=== PATIENT | female | born 1965 | race Two or more races ===

== ENCOUNTER → 2024-01-22 | Day surgery (SDC) | payer MEDICAID ==
[~2024-01-22] VITALS: Ht 162.6 cm; Wt 115.7 kg
[~2024-01-22] MED LIST: AML5T PO; ATOR10TA PO; BENA20TA PO; DexAMETHasone SOD PHOS 10MG/1ML VIAL INJ ONE; ESTR1TAB5 PO; HYDROmorphone HCL 2 MG/ML VL/or syr IV PRN; MEPERIDINE HCL (50 MG/ML) 1 ML VIAL ONE; MIDAZOLAM HCL 2MG/2ML 2ml VIAL (1mg/ml) IV PRN; MIDAZOLAM HCL 2MG/2ML 2ml VIAL (1mg/ml) ONE; MORPHINE SULFATE 4 MG/ML SYR/VIAL IV PRN; ONDANSETRON HCL 4 MG/2 ML VIAL IV ONE; PANT40TA2 PO; PROPOFOL 10 MG/ML 20 ML IV ONE; SERT25TA84 PO; ePHEDrine SULFATE 50 MG/ML AMP IV PRN; fentaNYL CITRATE 100 MCG/2 ML VL ONE
--- NOTE | 2024-01-22 11:54 | DVHHP2 ---
GI H&P Pre-Op Assessment Date: 01/22/24 Chief complaint: colon cancer surveillance HPI: per clinic note Past medical history: per clinic note Past surgical history: per clinic note Family history: per clinic note Physical exam: General: NAD, AAOX3 HEENT: PERRL, no scleral icterus, normal hearing, gums without lesions or bleeding, oropharynx clear without erythema or exudate. Neck: Supple without enlargement of the thyroid, or lymphadenopathy. Chest: Normal size and shape, no tenderness, lung bae clear to auscultation and percussion, nonlabored breathing. Heart: RRR, no murmur Abdomen: non-distended, no tenderness to palpation, +BS, no hepatosplenomegaly Extremities: no edema Neurological: CN II-XII intact, sensation intact in all extremities, 5+ strength in all extremities Skin: No rashes, No jaundice Assessment: - colon cancer surveillance Plan: - Colonoscopy - Risks (bleeding, infection, perforation, reaction to sedation medications and cardiopulmonary arrest) and benefit of the procedure were explained to patient. Patient agrees to undergo the procedure. MARY MASSEY MD Jan 22, 2024 11:54
--- NOTE | 2024-01-22 12:49 | DVHOP2 ---
Operative Report DATE OF OPERATION: 01/22/24 PROCEDURE: Colonoscopy. PREOPERATIVE INDICATION: The patient is a 58 -year-old female with history of colon cancer undergoing colonoscopy for colon cancer surveillance. POSTOPERATIVE DIAGNOSES: 1. Anastomosis at 20 cm from anal verge. It was normal-appearing. Biopsies were obtained. 2. Internal hemorrhoids PROCEDURE PERFORMED BY: Abe Beverly M.D. SCOPE: Olympus videocolonoscope. ASA CLASS: 3 PREOPERATIVE MEDICATIONS: MAC with Dr Levy PROCEDURE IN DETAIL: After obtaining an informed consent, the patient was placed on left lateral decubitus position. She was then sedated with the above medications. A rectal examination was performed that was normal. The colono scope was then passed through the anus into the rectosigmoid and through the descending, transverse, and ascending colon up to the cecum with visualization of the appendiceal orifice, base of the cecum and the ileocecal valve. No mass or polyp was observed. There was a normal appearing anastomosis in the sigmoid colon at 20 cm from the anal verge. Multiple biopsies were obtained from the anastomosis to check for dysplasia. There were internal hemorrhoids. The colonoscope was then withdrawn. The patient tolerated the procedure well without difficulty. WITHDRAWAL TIME: 8 minutes QUALITY OF THE PREP: Rock Bowel Prep score: 6 COMPLICATIONS : None SPECIMENS: Biopsy from the sigmoid anastomosis DISPOSITION: D/C to home PLAN: 1. Repeat colonoscopy base on biopsy result ABE BEVERLY MD Jan 22, 2024 12:49
--- NOTE | 2024-01-22 12:49 | DVHDS2 ---
Physician Discharge Progress N Final Diagnosis: Sigmoid anastomosis that was normal in appearance., internal hemorrhoids Operations or Procedures: Operations or Procedures Colonoscopy with biopsy Condition on Discharge: Good Disposition: Home Discharge Instructions: Diet: Regular Activity: No Restrictions, As Tolerated Medications: Resume with previous home medications Follow Up Care: Discharge Statement: "Patient was advised to return to the ER or call 911 if any headaches, dizziness, shortness of breath, chest pain, abdominal pain, bleeding, fevers, or worsening of medical condition. Patient was counseled about treatment plan, medications, possible side effects, patientverbalized understanding. All questions were answered to the best of my ability. This discharge took greater then 30 minutes in planning, reviewing documentation, counseling the patient, and discussing with other team members." MARY MASSEY MD Jan 22, 2024 12:49
[2024-01-22 12:55] VITALS: PULSE 57; RESP 15; TEMP 99.5; O2SAT 99
[2024-01-22 13:10] VITALS: BP 156/83; PULSE 52; RESP 15; O2SAT 97
== END | disposition home or self-care (01) ==
LOC: GI 12:24
PROVIDERS: ATTEND Internal Medicine Gastroenterology
DX: Z12.11 Encounter for screening for malignant neoplasm of colon (principal); K64.8 Other hemorrhoids; I10 Essential (primary) hypertension; E78.5 Hyperlipidemia, unspecified; E66.01 Morbid (severe) obesity due to excess calories; Z85.038 Personal history of other malignant neoplasm of large intestine; Z98.891 History of uterine scar from previous surgery; Z98.890 Other specified postprocedural states; Z79.899 Other long term (current) drug therapy; Z90.710 Acquired absence of both cervix and uterus; Z68.41 Body mass index [BMI] 40.0-44.9, adult; Z98.0 Intestinal bypass and anastomosis status
CPT/HCPCS: 45380; 88305; 88342; J1100; J2175; J2250; J2704; J3010; J7030